=== PATIENT | female | born 1935 | race Caucasian/White ===

== ENCOUNTER → 2016-12-15 | Outpatient (CLI) | payer MEDICARE, OTHER ==
--- NOTE | 2016-12-15 13:09 | WOMENS IMAGING REPORT ---
EXAM DESCRIPTION: BONE DENSITY HIP/SPINE COMPLETED DATE/TIME: 12/15/2016 12:50 pm REASON FOR STUDY: OSTEOPOROSIS M81.0 AGE-RELATED OSTEOPOROSIS W/O CURRENT PATHOLOGICAL FRAC COMPARISON: None. TECHNIQUE: Dual-Energy X-ray Absorptiometry (DEXA) of the AP Spine and Hip. LIMITATIONS: None. FINDINGS: LUMBAR SPINE: The bone mineral density (BMD) measured from L1-L4 in the AP projection correlates with a T-score of -1.2, which is osteopenia as defined by the World Health Organization. HIP: The bone mineral density (BMD) measured in the left hip correlates with a T-score of -2.1, which is o steopenia as defined by the World Health Organization. IMPRESSION: 1. LUMBAR SPINE: Osteopenia 2. HIP: Osteopenia COMMENT: The World Health Organization defines low BMD as follows: T-score: Normal: Greater than -1.0 Osteopenia: Between -1.0 and -2.5 Osteoporosis: Less than -2.5 without fractures Established osteoporosis: Less than -2.5 with fractures In general, you may wish to consider: Diagnosis Treatment Follow-up DEXA Normal BMD Prevention 2-3 years Osteopenia Prevention/Therapy 1-2 years Osteoporosis Therapy Yearly TECHNICAL DOCUMENTATION: JOB ID: [id number] All Rights Reserved
== END ==
LOC: WI 12:28
PROVIDERS: ATTEND Physician Assistant
DX: M81.0 Age-related osteoporosis without current pathological fracture (principal)
CPT/HCPCS: 77080